=== PATIENT | female | born 1985 | race Caucasian/White ===

== ENCOUNTER 2018-07-23 02:20 | Inpatient (IN) | payer OTHER ==
[2018-07-23] MEDS ORDERED: PROMETHAZINE HCL 25 MG/1 ML VIAL IVPUSH ONE (03:16)
[2018-07-23] MEDS ORDERED: BUTORPHANOL TARTRATE 1 MG/ML VIAL IVPB ONE (03:16)
--- NOTE | 2018-07-23 03:24 | HP ---
Past Medical History - Admission Chief Complaint: Labor pain History of Present Illness: 32 yo @ 38 weeks gestation, EDC 08/01/18, admitted for labor pain. Upon admission she was 5 cm dilated. History Source: Patient Limitations to Obtaining History: No Limitations - Past Medical History ...: 3 ...Para: 1 ...EDC by [facility]: 08/01/18 - Past Surgical History Past Surgical History: Yes: None Hx Myomectomy: No Hx Transabdominal Cerclage: No Home Medications - Allergies Allergies/Adverse Reactions: Allergies Allergy/AdvReac Type Severity Reaction Status Date / Time No Known Allergies Allergy Verified 07/22/18 23:20 - Home Medications Home Medications: Ambulatory Orders Vitamins (Sjr) - 1 tab PO DAILY 07/22/18 Review of Systems - Review of Systems Constitutional: reports: No Symptoms Eyes: reports: No Symptoms HENT: reports: No Symptoms Neck: reports: No Symptoms Cardiovascular: reports: No Symptoms Respiratory: reports: No Symptoms Gastrointestinal: reports: No Symptoms Genitourinary: reports: Pain Breasts: reports: No Symptoms Reported Musculoskeletal: reports: No Symptoms Integumentary: reports: No Symptoms Neurological: reports: No Symptoms Endocrine: reports: No Symptoms Hematology/Lymphatic: reports: No Symptoms Psychiatric: reports: No Symptoms Pain Intensity: 7 Physical Exam - Maternity Constitutional: Yes: Well Nourished Eyes: Yes: Conjunctiva Clear HENT: Yes: Atraumatic Neck: Yes: Supple Cardiovascular: Yes: Regular Rate and Rhythm Lungs: Clear to auscultation - Abdominal Exam/OB Number of Fetuses: Single Presentation: Vertex - Vaginal Exam/OB Dilatation (cm): 5 Effacement (%): 100 Amniotic Membrane Status: Intact Station: -2 - Physical Exam ...Motor Strength: WNL Psychiatric: Yes: Alert, Oriented Problem List - Problems (1) Pain during labor Code(s): O99.89 - OTH DISEASES AND CONDITIONS COMPL PREG/CHLDBRTH; R52 - PAIN, UNSPECIFIED Assessment/Plan Active labor Admit to L&D Analgesia as needed Anticipate
[2018-07-23 03:27] LABS: BASO % 0.1 % (0-2.0); EOS % 0.1 % (0-4.5); HEMATOCRIT 37.6 % (32.4-45.2); HEMOGLOBIN 12.5 GM/dL (10.7-15.3); LYMPH % 13.1 % (8-40); MCH 28.5 pg (25.7-33.7); MCHC 33.3 g/dl (32.0-36.0); MEAN CELL VOLUME 85.7 fl (80-96); MEAN PLT VOLUME 9.8 fl (7.5-11.1); MONO % 5.1 % (3.8-10.2); NEUT % 81.6 % (42.8-82.8); PLATELET COUNT 177 K/MM3 (134-434); RBC 4.39 M/mm3 (3.60-5.2); RDW 15.4 % (11.6-15.6); WHITE BLOOD COUNT 11.6 K/mm3 (4.0-10.0)
[2018-07-23] MEDS ORDERED: DEXTROSE 5%-LACTATED RINGERS 1,000 ML IV SCH (03:30)
[2018-07-23] MEDS ORDERED: BUTORPHANOL TARTRATE 2 MG/ML VIAL ONE (03:36)
[2018-07-23 03:40] LABS: INR 0.93 (0.83-1.09)
[2018-07-23 03:42] LABS: ACTIVATED PTT 28.2 SECONDS (25.2-36.5)
[2018-07-23 03:51] LABS: ANION GAP 11 MMOL/L (8-16); BLOOD UREA NITROGEN 9 mg/dL (7-18); CALCIUM 8.6 mg/dL (8.5-10.1); CHLORIDE 109 mmol/L (98-107); CO2 17 mmol/L (21-32); CREATININE 0.5 mg/dL (0.55-1.3); GLUCOSE,RANDOM 127 mg/dL (74-106); POTASSIUM 3.8 mmol/L (3.5-5.1); SODIUM 138 mmol/L (136-145)
[2018-07-23 04:37] VITALS: BMI 36.9
[2018-07-23] MEDS ORDERED: DEXTROSE 5%-LACTATED RINGERS 1,000 ML IV ONE (06:30)
[2018-07-23] MEDS ORDERED: LIDOCAINE HCL 1% PRESERVATIVE FREE - 30ML VIAL ONE (08:13)
[2018-07-23] MEDS ORDERED: OXYTOCIN 20 UNITS in 0.9% NS 20 UNIT/1,000 ML INFUS.BAG IV ONE (08:13)
[2018-07-23] MEDS ORDERED: BISACODYL 10 MG SUPP.RECT RC PRN (09:20)
[2018-07-23] MEDS ORDERED: ACETAMINOPHEN 325 MG TABLET (FP) PO PRN (09:20)
[2018-07-23] MEDS ORDERED: BENZOCAINE 28 GM HEMORRHOIDAL OINTMENT TP PRN (09:20)
[2018-07-23] MEDS ORDERED: METHYLERGONOVINE MALEATE 0.2 MG/1 ML AMP IM PRN (09:20)
[2018-07-23] MEDS ORDERED: WITCH HAZEL 50% (TUCKS) 40 PAD/JAR PAD TP PRN (09:20)
[2018-07-23] MEDS ORDERED: BENZOCAINE 20% 57 GM BOTTLE TP PRN (09:20)
--- NOTE | 2018-07-23 09:20 | PN ---
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 Gender: Male Position: Left, OA - 5 Minutes Total Score: 9 - Feeding Plan Initial Plan: Elected not to breastfeed exclusively throughout hospitalization Remarks - Remarks Remarks: Uncomplicated of baby boy from JUANITO position across intact perineum anterior shoulder (right) delivered along with remainder of 3VC noted, clamped and cut baby to warmer to be assessed by nursery staff (had meconium and variable decels during pushing) placenta delivered spontaneously and in tact some uterine atony after deliveyr, 0.2mg of Methergine given IM into left thigh at 0914 sponge count correct mom stable baby to well baby nursery
[2018-07-23] MEDS ORDERED: OXYTOCIN 20 UNITS in 0.9% NS 20 UNIT/1,000 ML INFUS.BAG IV SCH (09:30)
[2018-07-23] MEDS ORDERED: IBUPROFEN 600 MG TABLET (FP) PO ONE (09:34)
[2018-07-23] MEDS: IBUPROFEN 600 MG TABLET (FP) PO PRN (09:35)
[2018-07-23] MEDS ORDERED: TUBERCULIN PPD 5 TU/0.1ML SYRINGE (IN PATIENT USE ONLY) ID ONE (10:00)
[2018-07-23] MEDS: FERROUS SO4 325 MG TABLET (FP) PO SCH ×3 (11:49→17:47)
[2018-07-23] MEDS: PRENATAL VITAMINS W/ FOLIC ACID TABLET (FP) PO SCH (11:50)
[2018-07-24] MEDS: FERROUS SO4 325 MG TABLET (FP) PO SCH ×3 (07:54→17:17)
[2018-07-24 08:40] LABS: BASO % 0.6 % (0-2.0); EOS % 0.4 % (0-4.5); HEMATOCRIT 32.7 % (32.4-45.2); LYMPH % 19.1 % (8-40); MCH 28.5 pg (25.7-33.7); MCHC 33.7 g/dl (32.0-36.0); MEAN CELL VOLUME 84.7 fl (80-96); MEAN PLT VOLUME 9.8 fl (7.5-11.1); MONO % 5.1 % (3.8-10.2); NEUT % 74.8 % (42.8-82.8); PLATELET COUNT 180 K/MM3 (134-434); RBC 3.86 M/mm3 (3.60-5.2); RDW 15.8 % (11.6-15.6); WHITE BLOOD COUNT 10.9 K/mm3 (4.0-10.0)
[2018-07-24] MEDS: PRENATAL VITAMINS W/ FOLIC ACID TABLET (FP) PO SCH (09:29)
--- NOTE | 2018-07-24 11:01 | PN ---
Post Progress Note - Subjective Subjective: 32 yo Para 2 status post vaginal delivery, seen and evaluated. Doing well. Post Day: 1 Type of Delivery: Vital Signs: Vital Signs Temperature 97.1 F L 07/24/18 08:25 Pulse Rate 92 H 07/24/18 08:25 Respiratory Rate 18 07/24/18 08:25 Blood Pressure 136/86 07/24/18 08:25 O2 Sat by Pulse Oximetry (%) 100 07/23/18 10:00 Breast Exam: Yes: Soft Uterus: Yes: Fundus Firm Abdomen/GI: Yes: Abdomen soft, Tolerating PO Lochia: Yes: Rubra Lochia, amount: Moderate Extremities: Yes: Calves non-tender Perineum: Yes: Laceration (Healing) Activity: Ambulating - Labs Labs: CBC WBC 10.9 K/mm3 (4.0-10.0) H 07/24/18 08:15 RBC 3.86 M/mm3 (3.60-5.2) 07/24/18 08:15 Hgb 11.0 GM/dL (10.7-15.3) 07/24/18 08:15 Hct 32.7 % (32.4-45.2) 07/24/18 08:15 MCV 84.7 fl (80-96) 07/24/18 08:15 MCH 28.5 pg (25.7-33.7) 07/24/18 08:15 MCHC 33.7 g/dl (32.0-36.0) 07/24/18 08:15 RDW 15.8 % (11.6-15.6) H 07/24/18 08:15 Plt Count 180 K/MM3 (134-434) 07/24/18 08:15 MPV 9.8 fl (7.5-11.1) 07/24/18 08:15 Absolute Neuts (auto) 8.1 K/mm3 (1.5-8.0) H 07/24/18 08:15 Neutrophils % 74.8 % (42.8-82.8) 07/24/18 08:15 Lymphocytes % 19.1 % (8-40) D 07/24/18 08:15 Monocytes % 5.1 % (3.8-10.2) 07/24/18 08:15 Eosinophils % 0.4 % (0-4.5) D 07/24/18 08:15 Basophils % 0.6 % (0-2.0) D 07/24/18 08:15 Nucleated RBC % 0 % (0-0) 07/24/18 08:15 Problem List - Problems (1) Pain during labor Code(s): O99.89 - OTH DISEASES AND CONDITIONS COMPL PREG/CHLDBRTH; R52 - PAIN, UNSPECIFIED (2) Status post normal vaginal delivery Code(s): GLX1306 - Assessment/Plan Status post vaginal delivery Stable Continue routine care
[2018-07-24] MEDS ORDERED: SENNOSIDES/DOCUSATE COMBO (SENNA PLUS) TABLET (UD) PO PRN (22:00)
[2018-07-25] MEDS: IBUPROFEN 600 MG TABLET (FP) PO PRN (03:23)
--- NOTE | 2018-07-25 04:47 | PN ---
Post Note - Post Date of Delivery: 07/23/18 Vital Signs: Vital Signs - 24 hr 07/24/18 07/24/18 07/24/18 06:00 08:25 20:44 Temperature 98.3 F 97.1 F L 97.6 F Pulse Rate 105 H 92 H 106 H Respiratory 18 18 20 Rate Blood Pressure 125/75 136/86 134/84 Labs: Laboratory Results - last 24 hr 07/24/18 08:15 WBC 10.9 H RBC 3.86 Hgb 11.0 Hct 32.7 MCV 84.7 MCH 28.5 MCHC 33.7 RDW 15.8 H Plt Count 180 MPV 9.8 Absolute Neuts (auto) 8.1 H Neutrophils % 74.8 Lymphocytes % 19.1 D Monocytes % 5.1 Eosinophils % 0.4 D Basophils % 0.6 D Nucleated RBC % 0 - Subjective Subjective: No Complaints - Objective Afebrile: Yes Breast: Not engorged Abdomen: Soft, Non-tender Uterus: Fundus firm Vagina: Scant lochia Extremities: Non-tender - Assessment/Plan (1) Status post normal vaginal delivery Assessment: S/P Normal Plan: Routine Care
[2018-07-25] MEDS: PRENATAL VITAMINS W/ FOLIC ACID TABLET (FP) PO SCH (08:59)
[2018-07-25] MEDS: FERROUS SO4 325 MG TABLET (FP) PO SCH ×2 (08:59→12:11)
[2018-07-25 10:22] VITALS: BP 125/86; PULSE 92; TEMP 98.5
--- NOTE | 2018-07-27 09:59 | DS ---
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 Vital Signs: Vital Signs Temperature 98.5 F 07/25/18 09:00 Pulse Rate 92 H 07/25/18 09:00 Respiratory Rate 20 07/25/18 09:00 Blood Pressure 125/86 07/25/18 09:00 O2 Sat by Pulse Oximetry (%) 100 07/23/18 10:00 Constitutional: Yes: Well Nourished, No Distress Cardiovascular: Yes: WNL Respiratory: Yes: WNL Gastrointestinal: Yes: WNL ....Post : Yes: Uterus firm, Uterus non-tender Musculoskeletal: Yes: WNL Extremities: Yes: WNL Edema: No Neurological: Yes: WNL, Alert, Oriented Labs: CBC, BMP 07/24/18 08:15 07/23/18 03:00 Delivery - Delivery Vaginal Delivery: No Problems Type of Anesthesia: None Episiotomy/Laceration: None EBL (cc): 350 Delivery, Single - Stages of Labor Date 1st Stage Initiatied: 07/23/18 Time 1st Stage Initiated: 02:30 Date 2nd Stage Initiated: 07/23/18 Time 2nd Stage Initiated: 08:45 Date of Delivery: 07/23/18 Time of Delivery: 09:09 Time Placenta Delivered: 09:11 Placenta: Yes: Spontaneous - Condition of Infant 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 You may walk unlimited oscar of and climb stairs. You may resume driving the car when you feel safe and comfortable behind the wheel. No sexual activity as instructed. Wound care If you have a bandage, leave it on, and keep dry for 48-72 hours. After that time discard the outer bandage. If they are tapes on the skin under the out of bandage leave them in place. They will peel off in the next 7 to 10 days. Do Not Peel them off. You may shower the day after surgery. If there are tapes present on the skin, you may shower over them. Diet There are no dietary restrictions. Eat healthy, high-fiber foods. Drink 6 to 8 glasses of liquid each day. This will assist in keeping your bowels are regular. Pain management You may take Tylenol or acetaminophen or Ibuprofen (for example, Motrin, Advil etc.) from my pain prescription medication is ordered should be taken as prescribed for moderate to severe pain. Call MD for any of the following: Severe pain not relieved by medication Fever of 101 or higher Excessive bleeding or drainage on dressing Inability to urinate return to office in 4-6 weeks for check. call for appointment. Referrals: Carolyn Lua MD [Staff Physician] - Disposition: HOME - Home Medications Comprehensive Discharge Medication List: Ambulatory Orders Vitamins ([facility]) - 1 tab PO DAILY 07/22/18
== END 2018-07-25 14:30 | disposition home or self-care (01) | DRG 560 ==
LOC: JLDR 02:20 → J3W 10:30
PROVIDERS: ADMIT Obstetrics & Gynecology; ATTEND Obstetrics & Gynecology
PROC: 10E0XZZ Delivery of Products of Conception, External Approach (ICD-10-PCS; principal; 2018-07-23)
DX: O80 Encounter for full-term uncomplicated delivery (principal); Z3A.38 38 weeks gestation of pregnancy; Z37.0 Single live birth
CPT/HCPCS: 36415; 59409; 80048; 85025; 85610; 85730; 86593; 86850; 86900; 86901